=== PATIENT | male | born 2000 | race Caucasian/White ===

== ENCOUNTER 2020-07-18 21:34 | Inpatient (IN) | payer OTHER ==
[~2020-07-18] VITALS: Ht 177.8 cm; Wt 82.0 kg
[2020-07-18 22:54] LABS: HEMATOCRIT 45.6 % (42.0-52.0); HEMOGLOBIN 15.4 g/dl (13.5-17.5); MEAN CORPUSCULAR HEMOGLOBIN 30.5 pg (27.0-33.0); MEAN CORPUSCULAR HGB CONC 33.8 g/dl (32.0-36.5); MEAN CORPUSCULAR VOLUME 90.3 fl (80.0-96.0); PLATELET COUNT, AUTOMATED 261 10^3/uL (150-450); RED BLOOD COUNT 5.05 10^6/uL (4.30-6.10); WHITE BLOOD COUNT 12.1 10^3/uL (4.0-10.0)
[2020-07-18 23:20] LABS: ACETAMINOPHEN LEVEL < 2.0 UG/ML (10.0-30.0); ALBUMIN 4.4 GM/DL (3.2-5.2); ALT/SGPT 35 U/L (12-78); BILIRUBIN,DIRECT 0.3 MG/DL (0.0-0.2); BILIRUBIN,TOTAL 0.9 MG/DL (0.2-1.0); BLOOD UREA NITROGEN 18 MG/DL (7-18); CALCIUM LEVEL 9.7 MG/DL (8.5-10.1); CARBON DIOXIDE LEVEL 32 MEQ/L (21-32); CHLORIDE LEVEL 106 MEQ/L (98-107); CREATININE FOR GFR 1.13 MG/DL (0.70-1.30); ETHYL ALCOHOL (ETHANOL) < 0.003 % (0.000-0.010); GLOMERULAR FILTRATION RATE > 60.0 (>60); GLUCOSE, FASTING 109 MG/DL (70-100); POTASSIUM SERUM 3.9 MEQ/L (3.5-5.1); SALICYLATE LEVEL < 1.7 MG/DL (5.0-30.0); SODIUM LEVEL 141 MEQ/L (136-145)
[2020-07-18 23:21] LABS: AMPHETAMINES LEVEL URINE NEGATIVE (NEGATIVE); BARBITURATES URINE NEGATIVE (NEGATIVE); BENZODIAZEPINES URINE NEGATIVE (NEGATIVE); CANNABINOIDS URINE NEGATIVE (NEGATIVE); COCAINE METABOLITE URINE NEGATIVE (NEGATIVE); METHADONE URINE NEGATIVE (NEGATIVE); OPIATES URINE NEGATIVE (NEGATIVE); PHENCYCLIDINE URINE NEGATIVE (NEGATIVE)
[2020-07-19 01:45] LABS: RSV AMPLIFICATION NEGATIVE (NEGATIVE)
[2020-07-19] MEDS ORDERED: traZODone 50 MG TAB PO PRN (02:35)
[2020-07-19] MEDS ORDERED: LORazepam 1 MG TAB PO PRN (02:35)
[2020-07-19] MEDS ORDERED: ACETAMINOPHEN TAB 650MG DOSE (2X325MG) PO PRN (02:35)
[2020-07-19] MEDS ORDERED: MAALOX 30 ML SUSP *UDC PO PRN (02:35)
[2020-07-19] MEDS ORDERED: MOM 30ML SUSPENSION UDC PO PRN (02:35)
[2020-07-19] MEDS ORDERED: C 50TAB PO (02:44)
[2020-07-19] MEDS ORDERED: VITMTA PO (02:44)
[2020-07-19 04:05] VITALS: BP 115/68
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
--- NOTE | 2020-07-19 14:17 | HPEPDOC ---
[facility] Medical History & Physical Date of Admission July 18, 2020 Date of Service: July 19, 2020 History and Physical Chief complaint: Who presented to the emergency room with suicidal ideation History of present illness: Patient is 19-year-old male with no significant past medical history who presented to the emergency room with suicidal ideation. He was admitted to the inpatient mental health unit under the care of psychiatry. Hospitalist service was consulted for medical screening evaluation. Patient was seen and examined at the bedside. He denied any chest pain, short of breath, palpitations, nausea, vomiting, abdominal pain or diarrhea. Denies any urinary discomfort. Denies any headache. Reports a normal appetite and weight. 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 [employer] Review of Systems: 10 point review of systems complete, all negative otherwise stated in HPI Physical exam: - Vitals: BP [115/68], HR [48], RR [16], Sat [99%RA], Temp [97.3F] - General: Sitting up in chair, No acute distress, Speaking in full sentences, AAOx3 - HEENT: NC, AT, PERRLA, EOMI - CVS: RRR, +S1S2 - Lungs: Fair air entry bilaterally, No appreciable wheezing / rales / rhonchi - Abdomen: Soft, Non-distended, Non-tender - Extremities: No lower extremity edema, No calf tenderness - Neuro: No focal motor or sensory deficit - Skin: No visible rashes Labs: See below Imaging: See below EKG: See below Assessment and Plan: Suicidal ideation - Admitted to inpatient mental health unit under the care of psychiatry - Currently being managed by psychiatry Leukocytosis - No signs of infection on review of systems - Hemodynamically stable and afebrile - Will hold off on antibiotics at this time DVT prophylaxis - Will continue with early granulation Female cloth mercerizer back tender was present at the duration of this history and physical examination Thank you for this consultation; hospital service will now sign off, please reconsult as needed Vital Signs Vital Signs Date Time Temp Pulse Resp B/P (MAP) Pulse Ox O2 Delivery O2 Flow Rate FiO2 07/19/20 04:05 97.3 48 16 115/68 (84) 99 Room Air Laboratory Data Labs 24H Laboratory Tests 2 07/18/20 22:31: Nucleated Red Blood Cells % (auto) 0.0, Anion Gap 3L, Glomerular Filtration Rate > 60.0, Calcium Level 9.7, Total Bilirubin 0.9, Direct Bilirubin 0.3H, Asp artate Amino Transf (AST/SGOT) 25, Alanine Aminotransferase (ALT/SGPT) 35, Alkaline Phosphatase 112, Total Protein 8.0, Albumin 4.4, Albumin/Globulin Ratio 1.2, Thyroid Stimulating Hormone (TSH) 1.600, Salicylates Level < 1.7L, Urine Opiates Screen NEGATIVE, Urine Methadone Screen NEGATIVE, Acetaminophen Level < 2.0L, Urine Barbiturates Screen NEGATIVE, Urine Phencyclidine Screen NEGATIVE, Urine Amphetamines Screen NEGATIVE, Urine Benzodiazepines Screen NEGATIVE, Urine Cocaine Metabolite Screen NEGATIVE, Urine Cannabinoids Screen NEGATIVE, Ethyl Alcohol Level < 0.003 07/19/20 00:54: Coronavirus (COVID-19)(PCR) NEGATIVE, Influenza Type A (RT-PCR) NEGATIVE, Influenza Type B (RT-PCR) NEGATIVE, Respiratory Syncytial Virus (PCR) NEGATIVE CBC/BMP Laboratory Tests 07/18/20 22:31 Home Medications Scheduled Ascorbic Acid (Vitamin C) 500 Mg Tablet, 500 MG PO DAILY Multivitamins (Thera M Plus Tablet) 1 Each Tablet, 1 TAB PO DAILY Allergies Coded Allergies: No Known Allergies (Unverified , 07/18/20) AMBREEN SAUCEDA MD July 19, 2020 14:17
[2020-07-19 17:40] VITALS: BP 144/60
[2020-07-20 06:27] VITALS: BP 145/67
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
== END 2020-07-20 11:04 | disposition home or self-care (01) | DRG 885 ==
LOC: M ED 21:34 → M ED INP 07-19 02:35 → M PSY 07-19 04:06
PROVIDERS: ADMIT Psychiatry & Neurology Psychiatry; ATTEND Psychiatry & Neurology Psychiatry
DX: F32.1 Major depressive disorder, single episode, moderate (principal); R45.851 Suicidal ideations; Z81.8 Family history of other mental and behavioral disorders; Z62.811 Personal history of psychological abuse in childhood; Z20.822 Contact with and (suspected) exposure to COVID-19; Z60.9 Problem related to social environment, unspecified; D72.829 Elevated white blood cell count, unspecified